=== PATIENT | male | born 1960 | race Caucasian/White ===

== ENCOUNTER 2017-01-05 14:04 | Emergency (ER) | payer BC ==
[~2017-01-05] VITALS: Ht 170.2 cm; Wt 108.0 kg
[2017-01-05 14:07] VITALS: Ht 170.2 cm; Wt 108.0 kg
[2017-01-05] MEDS ORDERED: KETOROLAC TROMETHAMINE 30 MG/ML VIAL IV STA (14:41)
[2017-01-05 15:09] LABS: BASO % 0.4 %; BASO ABS # 0.03 K/uL (0-0.2); COMPLETE YES; EOS % 1.4 %; HEMATOCRIT 43.2 % (42-52); IG% 0.4 %; LYMPH ABS # 1.27 K/uL (1.2-3.4); MEAN CELL VOLUME 89.4 fL (80-100); MEAN CORPUSCULAR HEMOGLOBIN 31.1 pg (25-34); MEAN CORPUSCULAR HGB CONC 34.7 g/dl (32-36); MEAN PLATELET VOLUME 9.4 fL (7.4-10.4); MONO % 9.9 %; NEUT % 69.9 %; PLATELET COUNT 231 K/uL (130-400); RED BLOOD COUNT 4.83 M/uL (4.7-6.1); WHITE BLOOD COUNT 7.04 K/uL (4.8-10.8)
[2017-01-05 15:25] LABS: BUN/CREATININE RATIO 14.9 (10-20); CALCIUM 8.4 mg/dl (8.5-10.1); CREATININE 0.95 mg/dl (0.60-1.40); POTASSIUM 4.1 mmol/L (3.5-5.1)
[2017-01-05] MEDS ORDERED: SULFAMETHOXAZOLE/TRIMETHOPRIM DS 800/160MG TAB PO STA (15:46)
[2017-01-05] MEDS ORDERED: SULF800T23 PO (15:49)
[2017-01-05] MEDS ORDERED: CEPH500C2 PO (15:49)
--- NOTE | 2017-01-05 15:55 | EMERGENCY ROOM VISIT NOTE ---
History First contact with patient: 14:11 Chief Complaint: BITE Stated Complaint: SPIDER BITES TO HEAD AND NECK History of Present Illness The patient is a 56 year old male who presents to the Emergency Room with complaints of swelling in front of his right ear. The patient states that he has been home in the area for the last 3 weeks. He has been living in his cabin which has been vacant for some time. He states last Wednesday he started getting pain in his right ear. He thought it was just his eustachian tube and therefore he went to get Sudafed. He states he started the Sudafed but it did not get any better. Wednesday he started with increased ear pain and some swelling in front of his ear therefore he went to the [place] [facility]. He was diagnosed with an ear infection and was placed on amoxicillin. The past 2 days he noticed a lump under his chin as well as under his right mandible any continues to have increasing swelling just in front of his right ear. He also noticed lump just behind his ear. He has not really been able to visualize the area for any rashes. He denies any associated pruritus. He states they are slightly painful. The patient denies any fever. He thought maybe he got spider bites in his cabin. Review of Systems 10 system review was performed and was negative unless stated otherwise history of present illness. Social History Smoking Status: Current Some Day Smoker Alcohol Use: occasionally Marital Status: single Housing Status: lives alone Occupation Status: employed Current/Historical Medications Scheduled Cephalexin Monohydrate (Keflex), 500 MG PO QID Sulfa/Trimethoprim (Bactrim Ds 800MG/160MG), 1 TAB PO BID Physical Exam Vital Signs Date Time Temp Pulse Resp B/P (MAP) Pulse Ox O2 Delivery O2 Flow Rate FiO2 01/05/17 14:07 36.6 80 16 144/86 96 Room Air Physical Exam GENERAL: 56-year-old white male appears in no acute distress. MENTAL Status: Alert and oriented 3. HEAD: Atraumatic, there is an erythematous raised rash over the right mastoid. EARS: Right canal with cerumen unable to visualize TM. Tragus and auricle are nontender. Left canal clear without erythema or edema. TMs with good light reflex. FACE: Just under the mentum of the mandible as well as under the right mandible there is an erythematous patchy rash with yellow crusting. In the preauricular area on the right side there is swelling and a few punctate open areas without any purulent drainage. NECK: Supple, right anterior cervical lymphadenopathy noted. LUNGS: Clear auscultation without wheezes rales or rhonchi. CARDIAC: Regular rate and rhythm without murmur. Pulses is full and equal throughout. Medical Decision & Procedures Laboratory Results 01/05/17 14:55 Red Blood Count 4.83, Mean Corpuscular Volume 89.4, Mean Corpuscular Hemoglobin 31.1, Mean Corpuscular Hemoglobin Concent 34.7, Mean Platelet Volume 9.4, Neutrophils (%) (Auto) 69.9, Lymphocytes (%) (Auto) 18.0, Monocytes (%) (Auto) 9.9, Eosinophils (%) (Auto) 1.4, Basophils (%) (Auto) 0.4, Neutrophils # (Auto) 4.91, Lymphocytes # (Auto) 1.27, Monocytes # (Auto) 0.70, Eosinophils # (Auto) 0.10, Basophils # (Auto) 0.03 01/05/17 14:55 Test 01/05/17 14:55 White Blood Count 7.04 K/uL (4.8-10.8) Red Blood Count 4.83 M/uL (4.7-6.1) Hemoglobin 15.0 g/dL (14.0-18.0) Hematocrit 43.2 % (42-52) Mean Corpuscular Volume 89.4 fL (80-100) Mean Corpuscular Hemoglobin 31.1 pg (25-34) Mean Corpuscular Hemoglobin Concent 34.7 g/dl (32-36) Platelet Count 231 K/uL (130-400) Mean Platelet Volume 9.4 fL (7.4-10.4) Neutrophils (%) (Auto) 69.9 % Lymphocytes (%) (Auto) 18.0 % Monocytes (%) (Auto) 9.9 % Eosinophils (%) (Auto) 1.4 % Basophils (%) (Auto) 0.4 % Neutrophils # (Auto) 4.91 K/uL (1.4-6.5) Lymphocytes # (Auto) 1.27 K/uL (1.2-3.4) Monocytes # (Auto) 0.70 K/uL (0.11-0.59) Eosinophils # (Auto) 0.10 K/uL (0-0.5) Basophils # (Auto) 0.03 K/uL (0-0.2) RDW Standard Deviation 43.3 fL (36.4-46.3) RDW Coefficient of Variation 13.2 % (11.5-14.5) Immature Granulocyte % (Auto) 0.4 % Immature Granulocyte # (Auto) 0.03 K/uL (0.00-0.02) Anion Gap 6.0 mmol/L (3-11) Est Creatinine Clear Calc Drug Dose 101.8 ml/min Estimated GFR () 103.3 Estimated GFR (Non- 89.1 BUN/Creatinine Ratio 14.9 (10-20) Calcium Level 8.4 mg/dl (8.5-10.1) Medications Administered Medications (Trade) Dose Ordered Sig/Nicole Route Start Time Stop Time Status Last Admin Dose Admin Ketorolac Tromethamine (Toradol Inj) 30 mg NOW STAT IV 01/05/17 14:41 01/05/17 14:44 DC 01/05/17 14:57 30 MG ED Course The patient was evaluated. Using warm water irrigation and gentle curetting all cerumen was removed from the right ear canal to reveal canal without erythema or edema. TMs good light reflex. No erythema or fluid level noted. IV access was obtained. CBC and differential and renal profile was ordered. The patient was given Toradol 30 mg IV for pain and swelling. Labs are reviewed and were unremarkable. The patient was given Keflex 500 mg by mouth and Bactrim DS one tablet by mouth. The patient was discharged home in stable condition. Medical Decision Differential diagnosis include shingles but I do not suspect this since it is not in a dermatome distribution. Also included in my differential is impetigo, MRSA, cellulitis Impression Primary Impression: Impetigo Additional Impression: Rash of face Departure Information Dispostion Home / Self-Care Condition GOOD Prescriptions Sulfa/Trimethoprim (Bactrim Ds 800MG/160MG) Tab 1 TAB PO BID for 10 Days, #20 TAB Prov: Geovanna Nieves PA-C 01/05/17 Cephalexin Monohydrate (KEFLEX) 500 Mg Cap 500 MG PO QID for 10 Days, #40 CAP Prov: Geovanna Nieves PA-C 01/05/17 Referrals Randall Benoit III, M.D. (PCP) Forms HOME CARE DOCUMENTATION FORM, IMPORTANT VISIT INFORMATION Patient Instructions My [facility] [address] Additional Instructions Discontinue amoxicillin. Take Keflex and Bactrim as prescribed. Ibuprofen as needed for pain. If you experience any high fevers, increased pain in the area or spreading of the rash recommend seeking further medical attention. Problem Qualifiers
[2017-01-05] MEDS ORDERED: CEPHALEXIN MONOHYDRATE 250 MG CAP PO ONE (16:00)
[2017-01-05 16:06] VITALS: BP 135/99; PULSE 70; TEMP 36.6; O2SAT 97
== END 2017-01-05 16:07 | disposition home or self-care (01) ==
LOC: C.EDB 14:06 → MERGE 14:06 → C.EDB 16:07
DX: S01.95XA Open bite of unspecified part of head, initial encounter (principal); S11.95XA Open bite of unspecified part of neck, initial encounter; W57.XXXA Bitten or stung by nonvenomous insect and other nonvenomous arthropods, initial encounter; L01.00 Impetigo, unspecified; R21 Rash and other nonspecific skin eruption